=== PATIENT | female | born 1960 | race Caucasian/White ===

== ENCOUNTER → 2023-12-18 08:45 | Outpatient (REF) | payer BC, SELFPAY ==
[2023-12-18 10:57] LABS: TSH 1.18 uIU/ml (0.47-4.68)
[2023-12-18 11:10] LABS: Free T3 3.61 pg/ml (2.77-5.27)
[2023-12-19 11:45] LABS: Thyroid Peroxidase Ab (TPO) 0.4 IU/mL (0.0-9.0)
== END ==
LOC: REG 08:45
PROVIDERS: ATTENDING PHYSICIAN Nurse Practitioner
DX: R53.82 Chronic fatigue, unspecified (principal); N95.1 Menopausal and female climacteric states
CPT/HCPCS: 36415; 84443; 84481; 86376

== ENCOUNTER → 2023-12-30 06:45 | Outpatient (REF) | payer BC, SELFPAY | LOC: WDC 06:45 | PROVIDERS: ATTENDING PHYSICIAN Nurse Practitioner Family | DX: Z12.31 Encounter for screening mammogram for malignant neoplasm of breast (principal) | CPT/HCPCS: 77063; 77067 ==

== ENCOUNTER 2024-01-16 15:30 | Emergency (ER) | payer BC, SELFPAY ==
[2024-01-16 15:32] VITALS: BP 135/74
[2024-01-16 15:56] LABS: % Basophils 0.6 % (0-2); % Immature Granulocytes 0.2 % (0-0.5); % Lymphocytes 31.8 % (20.5-51.1); % Neutrophils 61.4 % (42.2-75.2); Absolute Lymphocytes 1.6 10^3/uL (1.2-3.4); Absolute Monocytes 0.3 10^3/uL (0.1-0.6); Hematocrit 42.6 % (37.0-47.0); Hemoglobin 14.2 g/dL (12.0-16.0); Mean Corp Hgb Conc. 33.3 g/dL (33.0-37.0); Mean Corpuscular Hgb 31.6 pg (27.0-31.0); Mean Corpuscular Volume 94.9 fL (81.0-99.0); Mean Platelet Volume 12.3 fL (7.4-10.4); Nucleated Red Blood Cells % 0 %; Platelet Count 148 10^3/uL (130-400); Red Blood Cell Count 4.49 10^6/uL (4.20-5.40); Red Cell Dist. Width 12.5 % (11.5-14.5); White Blood Cell Count 4.9 10^3/uL (4.8-10.8)
[2024-01-16 16:08] LABS: ALT (SGPT) 18 U/L (0-35); AST (SGOT) 23 U/L (14-36); Albumin 4.7 g/dl (3.5-5.0); Alkaline Phosphatase 38 U/L (38-126); Blood Urea Nitrogen 11 mg/dl (7-17); Calcium 9.5 mg/dl (8.4-10.2); Carbon Dioxide 29 mmol/L (22-30); Chloride 103 mmol/L (98-107); Glucose 93 mg/dl (70-99); Potassium 4.3 mmol/L (3.5-5.1); Sodium 137 mmol/L (135-145); Total Bilirubin 0.4 mg/dl (0.2-1.3); Total Protein 7.5 g/dl (6.3-8.2); eGFR > 60.00
[2024-01-16 16:21] LABS: Troponin I < 0.012 ng/ml
[2024-01-16 17:28] VITALS: BP 128/72
--- NOTE | 2024-01-16 17:53 | ED.GENMED ---
History of Present Illness
General
Chief Complaint: Chest Pain
Source: patient
Time Seen by Provider: 01/16/24 17:41
Travel History
Have you had any contact with someone who has COVID-19?: No
Do you have any symptoms of coronavirus? Fever > 100 degrees, chills, cough, shortness of breath, sore throat, loss of taste or smell, muscle aches, or headache?: No
History of Present Illness
History of Present Illness:
63-year-old female presents to the emergency room complaining of chest discomfort and palpitations. Symptoms began about 1 week. Patient states she can feel a strong beat in her chest periodically followed by what seems to be an unusual pause in
her heartbeat. Symptoms are very prominent. She denies any shortness breath. She takes [place] Thyroid. The dose was increased slightly couple weeks ago and she began to have palpitations so she went back to her original dose. She denies taking
any stimulants. She does drink a large couple coffee every morning. No fever or chills.
Phy Exam
Physical Exam
Physical Exam:
General: Awake, Alert, Oriented X3. No acute distress.
Vitals: Bradycardic
Head: Atraumatic
Eyes: Pupils equal, EOMI
Throat: Airway intact, no exudates
Neck: Trachea midline
Lungs: Clear and equal b/l
Heart: Regular rate occasional ectopic beats, no murmurs
Abd: Soft, Nontender, No pulsatile mass
Neuro: Nonfocal
Skin: Warm, dry, no rash
Extremities: pulses equal b/l, no edema
Scores
Heart Score for Chest Pain Patients
STEMI patient?: No
History: Slightly or Non-Suspicious
ECG: Normal
Age: >45 - <65 years
Risk Factors: No Risk Factors
Troponin: </= Normal Limit
Heart Score for Chest Pain Patients: 1
Heart Score Risk: 2.5% MACE over next 6 weeks
Course
Orders/Labs/Results
Orders:
Orders
01/16/24 15:36
Electrocardiogram (*1) Urgent
Reason for Study: Chest Pain
EKG- Treatment ONCE
01/16/24 15:44
Complete Blood Count/With Diff Urgent
Comprehensive Metabolic Panel Urgent
Troponin I Urgent
01/16/24 17:52
Add On- LAB Urgent
Tests Added?: tsh reflex t4
01/16/24 18:12
TSH Reflex To Free T4 Urgent
Comment: ADD ON
01/16/24 18:49
Troponin I Urgent
Abnormal Lab Results
01/16/24
15:44
MCH 31.6 H pg
(27.0-31.0)
MPV 12.3 H fL
(7.4-10.4)
01/16/24 15:44
01/16/24 15:44
Vital Signs
Initial and Last Documented VS:
Initial Vital Signs
Temp Pulse Resp BP Pulse Ox
98 F 51 16 135/74 100
01/16/24 15:32 01/16/24 15:32 01/16/24 15:32 01/16/24 15:32 01/16/24 15:32
Last Documented Vital Signs
Temp Pulse Resp BP Pulse Ox
98 F 44 18 115/74 98
01/16/24 15:32 01/16/24 20:00 01/16/24 20:00 01/16/24 20:00 01/16/24 19:45
MDM/Problems Addressed
Differential Diagnosis Includes:
ACS, electrolyte abnormality, hyperthyroidism, A-fib
MDM/Problems Addressed:
Patient presents with palpitations. EKG and cardiac monitoring shows sinus bradycardia with PACs. Labs are unremarkable. Blood pressure is normal. Patient states that she does have an history of sinus bradycardia. Discussed PACs are
disconcerting to some people but not dangerous. We could start a beta-erinn but with her heart rate being low at baseline I do not think this is appropriate at this time. Will have her follow-up with cardiology as an outpatient.
*Pulse Oximetry
Patient hypoxic: no
*EKG
Interpreted by ED Provider?: Yes
Interpretation: abnormal
Heart Rate: 54
Rate: normal
Rhythm: sinus
F[place]con: normal axis
Interval: normal interval
QRS Pattern: normal QRS
Ischemia: no ischemia
*Audio Production Engineer Interpretation
Rate: bradycardiac
Interpretation: abnormal
Heart Rate: 54
Rhythm: PAC's
*Critical Care Note
Total Time (30-74mins, 75-104mins- exclusive of procedures): Not Applicable
ED Attending Note
-
Portions of this chart may have been created with voice recognition software.� Occasional wrong word or��sound alike� substitutions may have occurred due to the inherent limitations of voice recognition software.
Discharge Plan
Departure
Patient Disposition: Home (Routine Discharge)
Date of Disposition: 01/16/24
Time of Disposition: 19:47
Patient with high blood pressure during this ER visit?: No
Condition: Good
Discharge Problem:
Palpitations, Premature atrial contraction
Instructions: Palpitations ED, Chest Pain DCA Follow Up, BLOOD PRESSURE
Referrals:
Richelle Jovel MD [Active] -
Maribel Yeh CRNP [Family Provider] -
Interventions
Interventions:
*Risk Screen - Suicide Last Done: 01/16/24 15:32
*General Assessment Last Done: 01/16/24 15:32
*Neglect/Abuse Screening Last Done: 01/16/24 15:32
ED- Fall Risk Assessment Last Done: 01/16/24 17:33
*ED COVID-19 Vaccine History Last Done: 01/16/24 20:07
*Nursing Disposition Last Done: 01/16/24 20:07
ED- Cardiac Assessment Last Done: 01/16/24 17:33
Discharge Date and Time
Discharge Date/Time: 01/16/24 20:07
Print Language: K[place]ILI
[2024-01-16 18:00] VITALS: BP 121/65
[2024-01-16 19:00] VITALS: BP 121/63
[2024-01-16 19:18] LABS: TSH Reflex To Free T4 1.24 uIU/ml (0.47-4.68)
[2024-01-16 19:22] LABS: Troponin I < 0.012 ng/ml
[2024-01-16 20:00] VITALS: BP 115/74
== END 2024-01-16 20:07 | disposition home or self-care (01) ==
LOC: EMR 15:30
PROVIDERS: Emergency Medicine; EMERGENCY PHYSICIAN Emergency Medicine; FAMILY PHYSICIAN Nurse Practitioner Family
DX: R00.2 Palpitations (principal); R07.89 Other chest pain; I49.1 Atrial premature depolarization; Z88.0 Allergy status to penicillin
CPT/HCPCS: 99283; 80053; 84443; 84484; 85025; 93005

== ENCOUNTER → 2024-06-11 07:10 | Outpatient (REF) | payer BC, SELFPAY ==
[2024-06-11 08:36] LABS: % Basophils 1.2 % (0-2); % Immature Granulocytes 0.3 % (0-0.5); % Lymphocytes 31.4 % (20.5-51.1); % Monocytes 8.4 % (1.7-9.3); % Neutrophils 58.7 % (42.2-75.2); Absolute Lymphocytes 1.1 10^3/uL (1.2-3.4); Absolute Monocytes 0.3 10^3/uL (0.1-0.6); Hematocrit 41.6 % (37.0-47.0); Hemoglobin 14.1 g/dL (12.0-16.0); Mean Corp Hgb Conc. 33.9 g/dL (33.0-37.0); Mean Corpuscular Volume 94.5 fL (81.0-99.0); Mean Platelet Volume 11.9 fL (7.4-10.4); Nucleated Red Blood Cells % 0 %; Platelet Count 153 10^3/uL (130-400); Red Cell Dist. Width 13.1 % (11.5-14.5); White Blood Cell Count 3.5 10^3/uL (4.8-10.8)
[2024-06-11 09:05] LABS: ALT (SGPT) 21 U/L (0-35); AST (SGOT) 26 U/L (14-36); Albumin 4.5 g/dl (3.5-5.0); Alkaline Phosphatase 39 U/L (38-126); Blood Urea Nitrogen 15 mg/dl (7-17); Calcium 9.7 mg/dl (8.4-10.2); Carbon Dioxide 26 mmol/L (22-30); Chloride 101 mmol/L (98-107); Glucose 89 mg/dl (70-99); HDL Cholesterol 79 mg/dl; LDL Cholesterol, Calculated 221 mg/dl; Potassium 4.6 mmol/L (3.5-5.1); Sodium 140 mmol/L (135-145); Total Bilirubin 0.4 mg/dl (0.2-1.3); Total Cholesterol 313 mg/dl (50-199); Total Protein 7.1 g/dl (6.3-8.2); Triglyceride 69 mg/dl (10-149); Very Low Density Lipoprotein 13 mg/dl (0-30); eGFR > 60.00
== END ==
LOC: REG 07:10
PROVIDERS: ATTENDING PHYSICIAN Nurse Practitioner Family
DX: Z00.00 Encounter for general adult medical examination without abnormal findings (principal); E78.5 Hyperlipidemia, unspecified
CPT/HCPCS: 36415; 80053; 80061; 85025

== ENCOUNTER → 2024-07-08 19:39 | Outpatient (REF) | payer BC, SELFPAY | LOC: MRI 19:39 | PROVIDERS: ATTENDING PHYSICIAN Psychiatry & Neurology Neurology; FAMILY PHYSICIAN Nurse Practitioner Family | DX: M51.26 Other intervertebral disc displacement, lumbar region (principal); M47.816 Spondylosis without myelopathy or radiculopathy, lumbar region; S39.92XS Unspecified injury of lower back, sequela | CPT/HCPCS: 72148 ==

== ENCOUNTER → 2024-09-17 08:37 | Outpatient (REF) | payer BC, SELFPAY ==
[2024-09-17 09:38] LABS: Hematocrit 41.6 % (37.0-47.0); Hemoglobin 14.1 g/dL (12.0-16.0); Mean Corp Hgb Conc. 33.9 g/dL (33.0-37.0); Mean Corpuscular Hgb 31.5 pg (27.0-31.0); Mean Corpuscular Volume 93.1 fL (81.0-99.0); Platelet Count 141 10^3/uL (130-400); Red Blood Cell Count 4.47 10^6/uL (4.20-5.40); Red Cell Dist. Width 12.7 % (11.5-14.5); White Blood Cell Count 3.7 10^3/uL (4.8-10.8)
[2024-09-20 05:57] LABS: HDL Cholesterol 83 mg/dL (40-59); HDL Particle Number, NMR 35.4 umol/L (>=33.0); HDL Particle Size, NMR 9.6 nm (>=8.9); LDL Cholesterol, Calculated 233 mg/dL (<=129); LDL Particle Number, NMR 2173 nmol/L (<=1135); LDL Particle Size, NMR 22.2 nm (>=20.7); Large HDL Particle Number, NMR 12.2 umol/L (>=4.2); Large VLDL Particle Number,NMR <1.5 nmol/L (<=2.7); Small LDL Particle Number, NMR 272 nmol/L (<=634); Total Cholesterol 328 mg/dL (<=199); Triglycerides 58 mg/dL (30-149); VLDL Particle Size, NMR 44.1 nm (<=46.7)
== END ==
LOC: REG 08:37
PROVIDERS: ATTENDING PHYSICIAN Internal Medicine Cardiovascular Disease; FAMILY PHYSICIAN Nurse Practitioner Family
DX: E78.5 Hyperlipidemia, unspecified (principal); D72.819 Decreased white blood cell count, unspecified
CPT/HCPCS: 36415; 80061; 83704; 85027

== ENCOUNTER → 2025-02-02 19:34 | Outpatient (REF) | payer BC, SELFPAY | LOC: WDC 19:34 | PROVIDERS: ATTENDING PHYSICIAN Nurse Practitioner Family | DX: Z12.31 Encounter for screening mammogram for malignant neoplasm of breast (principal) | CPT/HCPCS: 77063; 77067 ==

== ENCOUNTER → 2025-04-21 09:27 | Outpatient (REF) | payer BC, SELFPAY ==
[2025-04-21 10:09] LABS: Hematocrit 39.5 % (37.0-47.0); Hemoglobin 13.3 g/dL (12.0-16.0); Mean Corp Hgb Conc. 33.7 g/dL (33.0-37.0); Mean Corpuscular Volume 93.4 fL (81.0-99.0); Nucleated Red Blood Cells % 0 %; Platelet Count 153 10^3/uL (130-400); Red Cell Dist. Width 13.2 % (11.5-14.5)
[2025-04-21 11:28] LABS: ALT (SGPT) 18 U/L (0-35); AST (SGOT) 19 U/L (14-36); Albumin 4.6 g/dl (3.5-5.0); Alkaline Phosphatase 27 U/L (38-126); Blood Urea Nitrogen 17 mg/dl (7-17); Calcium 9.4 mg/dl (8.4-10.2); Carbon Dioxide 27 mmol/L (22-30); Chloride 102 mmol/L (98-107); Glucose 93 mg/dl (70-99); HDL Cholesterol 92 mg/dl; Potassium 4.4 mmol/L (3.5-5.1); Sodium 135 mmol/L (135-145); Total Protein 7.5 g/dl (6.3-8.2); Very Low Density Lipoprotein 10 mg/dl (0-30); eGFR > 60.00
[2025-04-21 11:38] LABS: LDL Cholesterol, Calculated 241 mg/dl
== END ==
LOC: REG 09:27
PROVIDERS: ATTENDING PHYSICIAN Physician Assistant; FAMILY PHYSICIAN Family Medicine
DX: E78.5 Hyperlipidemia, unspecified (principal)
CPT/HCPCS: 36415; 80053; 80061; 84443; 85025

== ENCOUNTER 2025-04-27 02:21 | Emergency (ER) | payer BC, SELFPAY ==
[2025-04-27] VITALS (10 sets, daily range): BP systolic 107–139; BP diastolic 27–91; BMI 21.9
[2025-04-27 03:05] LABS: Hematocrit 40.4 % (37.0-47.0); Hemoglobin 14.1 g/dL (12.0-16.0); Mean Corp Hgb Conc. 34.9 g/dL (33.0-37.0); Mean Corpuscular Volume 91.6 fL (81.0-99.0); Nucleated Red Blood Cells % 0 %; Platelet Count 168 10^3/uL (130-400); Red Cell Dist. Width 13.3 % (11.5-14.5)
[2025-04-27 03:27] LABS: ALT (SGPT) 16 U/L (0-35); AST (SGOT) 18 U/L (14-36); Albumin 4.5 g/dl (3.5-5.0); Alkaline Phosphatase 30 U/L (38-126); Blood Urea Nitrogen 18 mg/dl (7-17); Calcium 9.2 mg/dl (8.4-10.2); Carbon Dioxide 29 mmol/L (22-30); Chloride 105 mmol/L (98-107); Estimated Creatinine Clearance 75 ml/min; Glucose 107 mg/dl (70-99); Potassium 4.2 mmol/L (3.5-5.1); Sodium 138 mmol/L (135-145); Total Protein 7.2 g/dl (6.3-8.2); eGFR > 60.00
[2025-04-27 03:40] LABS: Troponin I < 0.012 ng/ml
--- NOTE | 2025-04-27 05:41 | ED.GENMED ---
History of Present Illness
General
Chief Complaint: Chest Pain
Source: patient
Exam Limitations: none
Time Seen by Provider: 04/27/25 05:20
Nursing documentation reviewed up to this point in time: agreed with
History of Present Illness
History of Present Illness:
Note:
CHIEF COMPLAINT(S)
The patient presents with chest pain that started approximately two days ago, with a prior history of pain in the shoulder blade area starting two weeks prior.
HISTORY OF PRESENT ILLNESS
The patient is a 64-year-old female with a history of bradycardia and high cholesterol. She presents tonight with reports of chest pain that has been occurring intermittently for approximately two days. The pain originally began in the shoulder
blade region about two weeks ago and was severe, but it has since improved. The chest pain is described as starting one week ago, notably waking her at 1 a.m tonight. It is localized primarily to the left side of the chest and does not worsen with
deep breathing or exertion. She denies any shortness of breath or recent heavy lifting, though she mentions engaging in yard work frequently. She reports occasional palpitations, described as her heart pounding. There is no report of dizziness or
syncope, although there was a mild lightheadedness upon standing. The patient mentions feeling tender to touch in the area of pain.
The patient has a history of bradycardia previously evaluated with an echocardiogram, which was normal. She has PACs and PVCs but has not noticed any significant episodes recently. She takes ibuprofen for pain management, which helped alleviate
previous shoulder blade discomfort. She was seen by an orthopedist for these symptoms and an MRI was ordered. She was seen by her PCP for these symptoms as well and a stress test was ordered.
PLAN
1. Repeat the troponin test and obtain a follow-up electrocardiogram to rule out cardiac causes.
2. Obtain a chest X-ray to assess for abnormalities including aortic or lung issues.
3. Administer Toradol intravenously to evaluate if anti-inflammatory treatment alleviates the patients pain, suggesting a musculoskeletal origin.
4. Monitor for any signs of a developing shingles rash given the patients tenderness, although no rash is currently present.
DIFFERENTIAL DIAGNOSIS
The Differential Diagnosis includes, in no particular order and is not limited to:
1. Musculoskeletal pain due to repetitive movements or minor injuries
2. Cardiac-related chest pain
3. Gastroesophageal reflux disease
4. Costochondritis
5. Pulmonary embolism
6. Herpes Zoster (shingles)
7. Myocardial ischemia or infarction
8. Anxiety-related chest pain
9. Peptic ulcer disease
10. Pericarditis
PHYSICAL EXAM
General: Patient is well appearing and in no acute distress; non-toxic
Skin: Warm and dry, no rashes or lesions, no herptic rash noted on the chest or the back
Head: Normocephalic, atraumatic
Eyes: Sclera non-icteric. EOMs intact.
Cardiac: Regular rate and rhythm, no murmurs
Peripheral Vascular: No lower extremity swelling or edema
Pulm: Normal respiratory effort, no wheezes, rales,, or rhonchi
Abdomen: Abdomen soft and non-tender to palpation
Neuro: CN II-XII intact, no focal neurologic deficits.
Psychiatric: Appropriate mood and affect.
CHART REVIEW
01/16/24 pt seen for palpitations, EKG and cardiac monitoring shows sinus bradycardia with PACs. Labs are unremarkable. Blood pressure is normal. Patient states that she does have an history of sinus bradycardia. Discussed PACs are disconcerting
to some people but not dangerous.
MDM/DISPOSITION
This is a 64 year-old female with no pastoral history who presents to emergency apartment today with concerns of chest pain. This has been going on intermittently for the past week and a half f however s been constant the past few hours and woke her
up from sleep. Patient reports that this started with pain in the left shoulder in the back and radiate to the front. Patient was seen by orthopedist who felt that her symptoms could be muscular and ideology and MRIs were ordered for further
evaluation. Patient does report some relief for Tylenol. Patient reports that she's been doing yardwork a lot. On my physical exam patient's well hearing no acute distress. She's very tender r with slight palpation of the left external chest wall
and blade blade which initially made me concern ed for a herpetic neuralgia consider considering the sensitivity however patient has not noted a rash. nal history of cardiac disease other than PACs. She got a chest x-ray in the emergency department
which revealed no cardio pulmonary morality. She had troponins which were undetectable. She had unremarkable bloodwork. She feels as though the pain has started to let up while she's been here. No significant improvement with Toradol. She feels like
the pain improves when she walks around. Highly suspect musculoskeletal audiology. Although did iscuss getting a deer however highly doubt PE considering patient is not short of breath reath, not tachycardic, not hypoxic, and has no DVTPE risk
factors. Patient stealer for discharge. Discussed following up with cardiology and her PC.
Review of Systems
Review of Systems
All Other Systems: ROS reviewed and negative except as documented in HPI and ROS
Phy Exam
Physical Exam
Physical Exam:
see hpi
Scores
Heart Score for Chest Pain Patients
STEMI patient?: No
History: Slightly or Non-Suspicious
ECG: Normal
Age: >45 - <65 years
Risk Factors: No Risk Factors
Troponin: </= Normal Limit
Heart Score for Chest Pain Patients: 1
Heart Score Risk: 2.5% MACE over next 6 weeks
Course
Orders/Labs/Results
Orders:
Orders
04/27/25 02:22
Electrocardiogram (*1) Urgent
Reason for Study: Chest Pain
EKG- Treatment ONCE
04/27/25 02:35
Complete Blood Count/With Diff Urgent
Comprehensive Metabolic Panel Urgent
Troponin I Urgent
04/27/25 05:55
Ketorolac [Toradol] 15 mg IV NOW STA
04/27/25 05:56
Electrocardiogram (*1) Urgent
Reason for Study: Chest Pain
CR Chest - 2 Views Urgent
Comment:
Reason For Exam: left sided chest pain
04/27/25 06:09
Troponin I Urgent
Abnormal Lab Results
04/27/25
02:35
WBC 4.1 L 10^3/uL
(4.8-10.8)
MCH 32.0 H pg
(27.0-31.0)
MPV 10.9 H fL
(7.4-10.4)
Monocytes % 9.7 H %
(1.7-9.3)
BUN 18 H mg/dl
(7-17)
Glucose 107 H mg/dl
(70-99)
Alkaline Phosphatase 30 L U/L
(38-126)
04/27/25 02:35
04/27/25 02:35
Vital Signs
Initial and Last Documented VS:
Initial Vital Signs
Temp Pulse Resp BP Pulse Ox
98.9 F 64 18 138/40 100
04/27/25 02:24 04/27/25 02:24 04/27/25 02:24 04/27/25 02:24 04/27/25 02:24
Last Documented Vital Signs
Temp Pulse Resp BP Pulse Ox
98 F 57 14 123/73 100
04/27/25 08:18 04/27/25 08:18 04/27/25 08:18 04/27/25 08:18 04/27/25 08:18
*Pulse Oximetry
SaO2: 98
Oxygen Mode of Delivery: Room air
Patient hypoxic: no
*Critical Care Note
Total Time (30-74mins, 75-104mins- exclusive of procedures): Not Applicable
ED Attending Note
-
Portions of this chart may have been created with voice recognition software.� Occasional wrong word or��sound alike� substitutions may have occurred due to the inherent limitations of voice recognition software.
Discharge Plan
Departure
Patient Disposition: Home (Routine Discharge)
Date of Disposition: 04/27/25
Time of Disposition: 08:03
Patient with high blood pressure during this ER visit?: Yes
Condition: Good
Discharge Problem:
Chest pain
Instructions: Chest pain - Discharge instructions, BLOOD PRESSURE
Referrals:
Robin Augustine PA [Family Provider, Family Practice]
Richelle Jovel MD [Active, Cardiology] - Call in 1-3 days for appt
Activity Restrictions/Additional Instructions:
Please follow-up with your primary care provider. Please complete your stress testing. Please follow-up with Dr. Jovel, please call the office and state that you were seen for chest pain.
PLEASE RETURN EMERGENCY DEPARTMENT SHOULD YOU DEVELOP ACUTE WORSENING OF YOUR SYMPTOMS, SHORTNESS OF BREATH, SWELLING OR PAIN IN YOUR LEGS, LIGHTHEADEDNESS, DIZZINESS, FAINTING SPELLS, OR ANY OTHER SIGNS OR SYMPTOMS WORRISOME TO YOU
Interventions
Interventions:
*Risk Screen - Suicide Last Done: 04/27/25 02:24
*General Assessment Last Done: 04/27/25 03:28
*Neglect/Abuse Screening Last Done: 04/27/25 02:24
*ED- Fall Risk Assessment Last Done: 04/27/25 03:28
*ED COVID-19 Vaccine History Last Done: 04/27/25 03:28
*Nursing Disposition Last Done: 04/27/25 08:18
ED- Cardiac Assessment Last Done: 04/27/25 07:40
Discharge Date and Time
Discharge Date/Time: 04/27/25 08:20
Print Language: CUBAN
[2025-04-27] MEDS: TORADOL 15 MG IV (06:03)
[2025-04-27 06:41] LABS: Troponin I < 0.012 ng/ml
== END 2025-04-27 08:20 | disposition home or self-care (01) ==
LOC: EMR 02:21
PROVIDERS: Physician Assistant; EMERGENCY PHYSICIAN Emergency Medicine; FAMILY PHYSICIAN Physician Assistant
DX: R07.89 Other chest pain (principal); E78.00 Pure hypercholesterolemia, unspecified
CPT/HCPCS: 99283; 96374; 71046; 80053; 84484; 85025; 93005

== ENCOUNTER → 2025-05-03 13:31 | Outpatient (REF) | payer BC, SELFPAY | LOC: RCS 13:31 | PROVIDERS: ATTENDING PHYSICIAN Physician Assistant | DX: R07.9 Chest pain, unspecified (principal); E78.5 Hyperlipidemia, unspecified | CPT/HCPCS: 93017; 93350 ==

== ENCOUNTER → 2025-05-17 18:31 | Outpatient (REF) | payer BC, SELFPAY | LOC: MRI 18:31 | PROVIDERS: ATTENDING PHYSICIAN Physician Assistant Medical; FAMILY PHYSICIAN Family Medicine | DX: M54.14 Radiculopathy, thoracic region (principal) | CPT/HCPCS: 72141; 72146 ==

== ENCOUNTER 2025-07-08 06:11 | Day surgery (SDC) | payer BC, SELFPAY ==
[2025-07-08] VITALS (9 sets, daily range): BP systolic 112–125; BP diastolic 59–73; BMI 21.8
[2025-07-08] MEDS: NORMOSOL-R/PLASMALYTE-A 1000 IV (08:05)
[2025-07-08] MEDS: TYLENOL 1000 MG PO (08:12)
[2025-07-08] MEDS: HEPARIN 5000 UNITS SC (08:16)
--- NOTE | 2025-07-08 10:45 | OR.RPT ---
Operative Report
Operative Report
Primary Surgeon: Clementina
Assisting: Hari HARTMAN
Pre-op Diagnosis: Right inguinal hernia
Post-op Diagnosis: Same
Procedure Performed: Robot assisted laparoscopic repair of right inguinal hernia
Anesthesia Type: GETA
Specimen / Cultures: None
Estimated Blood Loss: 3cc
Complications: None immediate
Operative Findings: Small femoral defect containing fat, shallow indirect defect; XL MID 3D max
Date of Surgery: 07/08/25
Indications: This 65F developed a symptomatic right inguinal hernia. Robot assisted laparoscopic repair was elected.
Description of procedure:� The patient was taken to the operating room and positioned into supine position. The patient�s abdomen was prepped and draped in standard sterile fashion. A time-out was completed verifying correct patient, procedure,
site, positioning, and implants and special equipment prior to beginning this procedure.
A stab incision was made in the left upper quadrant, a Veress needle was inserted and proper position was confirmed by aspiration and saline drop test. Following this, pneumoperitoneum was created with insufflation of carbon dioxide to 12 mmHg. Then
a 8mm robotic trocar was inserted above and to the left of the umbilicus. A laparoscope was inserted and the area of initial trocar entry and Veress needle placement were both inspected and no injuries were found. Two 8mm trocars were then placed
lateral to the rectus sheath under direct visualization.
Both inguinal regions were inspected and the median umbilical ligament, medial umbilical ligament, and lateral umbilical fold were identified. Attention was turned to the right groin. The peritoneum was incised transversely above the defect and a
flap was developed in the caudad direction. Art�s ligament was identified ultimately dissected to its junction with the iliac vein and the space of Retzius was developed bluntly. The dissection was continued inferiorly to the iliopubic tract,
with care taken to avoid injury to the femoral branch of the genitofemoral nerve and the lateral femoral cutaneous nerve. The round ligament was isolated and sacrificed away from the internal ring.
The direct space was inspected and a hernia defect was not identified. The femoral space was inspected and a defect was identified and fatty contents reduced by gentle traction.The indirect space was inspected and a shalllow defect was identified
and reduced. The canal was inspected and no canal lipoma was identified.
Extra large right MID 3D max mesh was passed through a trocar. The mesh was placed into the preperitoneal space and moved into position to lay flat and completely cover the direct, indirect, and femoral spaces with overlap at the midline. The mesh
was secured into place using 2-0 vicryl suture to Art�s ligament medially and laterally. Care was taken to avoid the inferolateral triangles containing the iliac vessels and genital nerves. The peritoneal flap was closed over the mesh and secured
with 2-0 monocryl stratafix suture in similar positions of safety. A 14g angiocath was used to decompress the preperitoneal space revealing good seal and all mesh in good position without folding or curling.
After ensuring adequate hemostasis, the trocars were removed and the pneumoperitoneum allowed to escape. The trocar incisions were closed at the skin level using 4-0 monocryl and topical skin adhesive. All counts were correct and the patient
tolerated the procedure well and was taken to the postanesthesia care unit in stable condition.
The assistance of Hari HARTMAN was required due to the complexity of the procedure. During the procedure she assisted with retraction, visualization, and closure of the wound.
== END 2025-07-08 12:48 | disposition home or self-care (01) ==
LOC: SDS 06:11
PROVIDERS: ATTENDING PHYSICIAN Surgery
DX: K40.90 Unilateral inguinal hernia, without obstruction or gangrene, not specified as recurrent (principal)
CPT/HCPCS: 49650; C1781